=== PATIENT | male | born 1965 | race Caucasian/White ===

== ENCOUNTER 2018-07-02 15:53 | Emergency (ER) | payer BC ==
[~2018-07-02] VITALS: Ht 177.8 cm; Wt 88.5 kg
[2018-07-02 16:01] VITALS: BP 169/92
--- NOTE | 2018-07-02 16:24 | EKG ---
[facility] [address] [place] [address] Test Date: 2018-07-02 Test Time: 15:56:17 Pat Name: TETO VALENCIA Department: Room: Gender: M Customer Support Assistant: : 1965 Requested By: CATA NUNEZ Order Number: [id number] Reading MD: Tin Blanco Measurements Intervals [place] Rate: 64 P: 25 HI: 138 QRS: 24 QRSD: 78 T: 14 QT: 342 QTc: 356 Interpretive Statements SINUS RHYTHM ATRIAL PREMATURE COMPLEX(ES) Electronically Signed On 07-07-2018 11:50:05 CDT by Tin Blanco
[2018-07-02] MEDS ORDERED: ASPIRIN CHEWABLE 81 MG TABLET. PO ONE (16:30)
[2018-07-02 16:44] LABS: BASO % 0 % (0-3); EOS # 0.2 x10^3/uL (0.0-0.7); EOS % 3 % (0-3); HEMATOCRIT 52.1 % (39.0-53.0); HEMOGLOBIN 18.1 g/dL (13.0-17.5); LYMPH # 1.6 x10^3/uL (1.0-4.8); LYMPH % 22 % (24-48); MEAN CORPUSCULAR HEMOGLOBIN 32 pg (25-35); MEAN CORPUSCULAR HGB CONC 35 g/dL (31-37); MEAN CORPUSCULAR VOLUME 92 fL (79-100); MONO # 0.9 x10^3/uL (0.0-1.1); MONO % 12 % (0-9); NEUT # 4.4 x10^3uL (1.8-7.7); NEUT % 62 % (31-73); PLATELET COUNT 231 x10^3/uL (140-400); RED BLOOD COUNT 5.66 x10^6/uL (4.30-5.70); RED CELL DISTRIBUTION WIDTH 13.7 % (11.5-14.5); WHITE BLOOD COUNT 7.1 x10^3/uL (4.0-11.0)
[2018-07-02 16:56] LABS: PROTHROMBIN TIME PATIENT 12.1 SEC (11.7-14.0)
--- NOTE | 2018-07-02 17:01 | RAD ---
PORTABLE CHEST 1V Clinical Indication: ER PATIENT. CHEST TIGHTNESS X2 DAYS. ABNORMAL EKG. Comparison: None. Findings: The cardiomediastinal silhouette is normal. Lungs are clear. There is no pneumothorax. No pleural effusion is appreciated. No acute bone abnormality. IMPRESSION: No acute cardiopulmonary process. Electronically signed by: Apolinar Kaufman MD (07/02/2018 4:57 PM) [facility]
[2018-07-02 17:03] LABS: CALCIUM 9.6 mg/dL (8.5-10.1); CREATININE 1.1 mg/dL (0.7-1.3); GFR 70.6; POTASSIUM 4.6 mmol/L (3.5-5.1)
[2018-07-02 17:07] LABS: ALBUMIN 3.9 g/dL (3.4-5.0); ALBUMIN/GLOBULIN RATIO 0.9 (1.0-1.7); MAGNESIUM 2.2 mg/dL (1.8-2.4); TOTAL BILIRUBIN 0.8 mg/dL (0.2-1.0); TOTAL PROTEIN 8.1 g/dL (6.4-8.2)
[2018-07-02 17:09] LABS: D-DIMER 0.6 ug/mlFEU (0.00-0.50)
[2018-07-02] MEDS ORDERED: CONTRAST GIVEN. MC PRN (17:30)
[2018-07-02] MEDS ORDERED: IOHEXOL 300 MG/ML 100ML VIAL. IV ONE (17:30)
--- NOTE | 2018-07-02 17:39 | PHYS DOC ---
Past Medical History Past Medical History: No Pertinent History Past Surgical History: Other Additional Past Surgical Histo: "GROIN REPAIR" Alcohol Use: Heavy Additional Information: DAILY Drug Use: None Adult General Chief Complaint Chief Complaint: CHEST PAIN HPI HPI Patient is a 53 year old male who presents with chest pain palpitations and shortness of breath. This is a patient who has a history of tobacco use but he quit couple years back also father had an AR otherwise no prior significant history. He says for the last 3 or 4 days he's had tightness in his chest right side of the chest comes and goes it is better when he exerts himself and worse when he lays flat especially at night. He feels heart palpitations as well as last night he woke up he felt very short of breath he has been using his 's home oxygen saturation monitor regularly and he is noted saturations of 94-95 which have worried him greatly. Also has noted his heart rate anywhere from 40- 70 and he was worried about that he was having an EKG an outside clinic that showed PVCs with occasional bigeminy and so he was referred to the ER for evaluation. Review of Systems Review of Systems Constitutional: Denies fever or chills [] Eyes: Denies change in visual acuity, redness, or eye pain [] Cardiovascular: No additional information not addressed in HPI [] GI: Denies abdominal pain, nausea, vomiting, bloody stools or diarrhea [] : Denies dysuria or hematuria [] Musculoskeletal: Denies back pain or joint pain [] Integument: Denies rash or skin lesions [] All other systems were reviewed and found to be within normal limits, except as documented in this note. Current Medications Current Medications Current Medications Medications (Trade) Dose Ordered Sig/Fredy Start Time Stop Time Status Last Admin Dose Admin Aspirin (Children'S Aspirin) 324 mg 1X ONCE 07/02/18 16:30 07/02/18 16:31 DC 07/02/18 16:48 324 MG Info (CONTRAST GIVEN -- Rx MONITORING) 1 each PRN DAILY PRN 07/02/18 17:30 07/02/18 20:23 DC Iohexol (Omnipaque 300 Mg/ml) 75 ml 1X ONCE 07/02/18 17:30 07/02/18 17:31 DC 07/02/18 18:19 75 ML Allergies Allergies Allergies Coded Allergies Type Severity Reaction Last Updated Verified No Known Drug Allergies 07/02/18 No Physical Exam Physical Exam Constitutional: Well developed, well nourished, no acute distress, non-toxic appearance. [] HENT: Normocephalic, atraumatic, bilateral external ears normal, oropharynx moist, no oral exudates, nose normal. [] Eyes: PERRLA, EOMI, conjunctiva normal, no discharge. [] Neck: Normal range of motion, no tenderness, supple, no stridor. [] Cardiovascular:Heart rate regular rhythm, no murmur [] Lungs & Thorax: Bilateral breath sounds clear to auscultation [] Abdomen: Bowel sounds normal, soft, no tenderness, no masses, no pulsatile masses. [] Skin: Warm, dry, no erythema, no rash. [] Back: No tenderness, no CVA tenderness. [] Extremities: No tenderness, no cyanosis, no clubbing, ROM intact, no edema. [] Neurologic: Alert and oriented X 3, normal motor function, normal sensory function, no focal deficits noted. [] Psychologic: Affect normal, judgement normal, mood normal. [] Serrano: Constitutional: Well developed, well nourished, no acute distress, non-toxic appearance. [] Neck: Normal range of motion, no tenderness, supple, no stridor. [] Cardiovascular: Heart rate regular rhythm, no murmur [] Lungs & Thorax: Bilateral breath sounds clear to auscultation; no wheezes or rales Abdomen: Soft, no tenderness Skin: Warm, dry Back: No tenderness, no CVA tenderness. [] Extremities: No calf tenderness, no edema. [] Neurologic: Alert and oriented X 3, no focal deficits noted. [] Psychologic: Affect normal, judgement normal, mood normal. [] Current Patient Data Vital Signs Vital Signs Date Time Temp Pulse Resp B/P (MAP) Pulse Ox O2 Delivery O2 Flow Rate FiO2 07/02/18 16:01 97.6 78 18 169/92 (117) 100 Room Air 97.6 Lab Values Laboratory Tests Test 07/02/18 16:24 07/02/18 18:50 07/02/18 18:51 White Blood Count 7.1 x10^3/uL (4.0-11.0) Red Blood Count 5.66 x10^6/uL (4.30-5.70) Hemoglobin 18.1 g/dL (13.0-17.5) H Hematocrit 52.1 % (39.0-53.0) Mean Corpuscular Volume 92 fL (79-100) Mean Corpuscular Hemoglobin 32 pg (25-35) Mean Corpuscular Hemoglobin Concent 35 g/dL (31-37) Red Cell Distribution Width 13.7 % (11.5-14.5) Platelet Count 231 x10^3/uL (140-400) Neutrophils (%) (Auto) 62 % (31-73) Lymphocytes (%) (Auto) 22 % (24-48) L Monocytes (%) (Auto) 12 % (0-9) H Eosinophils (%) (Auto) 3 % (0-3) Basophils (%) (Auto) 0 % (0-3) Neutrophils # (Auto) 4.4 x10^3uL (1.8-7.7) Lymphocytes # (Auto) 1.6 x10^3/uL (1.0-4.8) Monocytes # (Auto) 0.9 x10^3/uL (0.0-1.1) Eosinophils # (Auto) 0.2 x10^3/uL (0.0-0.7) Basophils # (Auto) 0.0 x10^3/uL (0.0-0.2) Prothrombin Time 12.1 SEC (11.7-14.0) Prothrombin Time INR 0.9 (0.8-1.1) D-Dimer (Reshma) 0.60 ug/mlFEU (0.00-0.50) H Sodium Level 140 mmol/L (136-145) Potassium Level 4.6 mmol/L (3.5-5.1) Chloride Level 104 mmol/L (98-107) Carbon Dioxide Level 28 mmol/L (21-32) Anion Gap 8 (6-14) Blood Urea Nitrogen 14 mg/dL (8-26) Creatinine 1.1 mg/dL (0.7-1.3) Estimated GFR (Cockcroft-Gault) 70.6 BUN/Creatinine Ratio 13 (6-20) Glucose Level 91 mg/dL (70-99) Calcium Level 9.6 mg/dL (8.5-10.1) Magnesium Level 2.2 mg/dL (1.8-2.4) Total Bilirubin 0.8 mg/dL (0.2-1.0) Aspartate Amino Transferase (AST) 33 U/L (15-37) Alanine Aminotransferase (ALT) 53 U/L (16-63) Alkaline Phosphatase 74 U/L (46-116) Troponin I Quantitative < 0.017 ng/mL (0.000-0.055) < 0.017 ng/mL (0.000-0.055) Total Protein 8.1 g/dL (6.4-8.2) Albumin 3.9 g/dL (3.4-5.0) Albumin/Globulin Ratio 0.9 (1.0-1.7) L Lipase 147 U/L (73-393) POC Troponin I 0.00 ng/ml (<0.08) Laboratory Tests 07/02/18 16:24 Laboratory Tests 07/02/18 16:24 EKG EKG [] Interpretation Time: EKG shows normal sinus rhythm rate of 64 occasional premature atrial contraction but no signs of ischemia were identified. This was interpreted by me the time of encounter Radiology/Procedures Radiology/Procedures []Reveal cardiac monitoring the emergency room shows mostly sinus rhythm with occasional PVCs. Impressions: Chest x-ray was negative acute PROCEDURE: CT ANGIOGRAPHY CHEST Exam performed: CT pulmonary angiogram of the chest with contrast. Date: 07/02/2018. Comparison: One view chest from earlier today Indication: Chest pain and elevated d-dimer Technique: Contiguous helical acquisitions are obtained through the chest during intravenous administration of [ 75 ] cc of [ Omnipaque 300 ] . [Sagittal and coronal MIP images were obtained and reviewed Findings: The structures at the thoracic inlet including both lobes of the thyroid gland appear normal. Pulmonary arterial opacification is adequate to evaluate for pulmonary embolus. There is no evidence for pulmonary embolism. The heart is normal in size. No pericardial effusion is seen. No mediastinal or hilar lymphadenopathy is seen. No infiltrates or pleural effusions are seen. No pulmonary nodules are detected. Upper abdominal structures appear unremarkable. Osseous structures appear intact. Impression: 1. Study is negative for pulmonary embolism. 2. No additional pulmonary abnormality seen. PQRS Compliance Statement: One or more of the following individualized dose reduction techniques were utilized for this examination: 1. Automated exposure control 2. Adjustment of the mA and/or kV according to patient size 3. Use of iterative reconstruction technique Electronically signed by: Cristina Christopher MD (07/02/2018 6:43 PM) [facility] Course & Med Decision Making Course & Med Decision Making Pertinent Labs and Imaging studies reviewed. (See chart for details) []53-year-old male presenting with a sensation of palpitations associated with some anxiety which he admits to as well as some atypical chest pain and shortness of breath. Troponin negative EKG shows no ischemia his heart score is a 3 d-dimer was borderline elevated CT scan PE protocol is pending. I suspect overall symptomatic PVCs possibly related to frequent alcohol use I advised him to decrease this and follow-up with primary care doctor for consideration of Holter monitor and echo. Signed over to Josr to follow up CT PE protocol. Josr- Sign out received from Dr. Taveras for patient with atypical chest pain. Labs reviewed. Troponin x 1 negative. CTA pending at time of sign out. CTA negative for acute process. Repeat troponin also within normal limits. Patient seen and evaluated by myself. Low cardiac risk factors. Patient stable for discharge with outpatient follow-up with PCP/cardiology. Discussed findings and plan with patient and family, who acknowledge understanding and agreement. Discharge paperwork previously printed by Dr. Taveras. Dragon Disclaimer Dragon Disclaimer This electronic medical record was generated, in whole or in part, using a voice recognition dictation system. Departure Departure Impression: Primary Impression: Chest pain Additional Impression: Elevated blood pressure reading Disposition: HOME, SELF-CARE Condition: STABLE Patient Instructions: Chest Pain (Nonspecific), [id number] Additional Instructions: FOLLOW UP IN TWO WEEKS FOR BLOOD PRESSURE. Problem Qualifiers Primary Impression: Chest pain Chest pain type: unspecified Qualified Codes: R07.9 - Chest pain, unspecified CATA TAVERAS MD Jul 02, 2018 17:39 LEIGHTON SERRANO DO Jul 02, 2018 19:14
--- NOTE | 2018-07-02 18:47 | RAD ---
Exam performed: CT pulmonary angiogram of the chest with contrast. Date: 07/02/2018. Comparison: One view chest from earlier today Indication: Chest pain and elevated d-dimer Technique: Contiguous helical acquisitions are obtained through the chest during intravenous administration of [ 75 ] cc of [ Omnipaque 300 ] . [Sagittal and coronal MIP images were obtained and reviewed Findings: The structures at the thoracic inlet including both lobes of the thyroid gland appear normal. Pulmonary arterial opacification is adequate to evaluate for pulmonary embolus. There is no evidence for pulmonary embolism. The heart is normal in size. No pericardial effusion is seen. No mediastinal or hilar lymphadenopathy is seen. No infiltrates or pleural effusions are seen. No pulmonary nodules are detected. Upper abdominal structures appear unremarkable. Osseous structures appear intact. Impression: 1. Study is negative for pulmonary embolism. 2. No additional pulmonary abnormality seen. PQRS Compliance Statement: One or more of the following individualized dose reduction techniques were utilized for this examination: 1. Automated exposure control 2. Adjustment of the mA and/or kV according to patient size 3. Use of iterative reconstruction technique Electronically signed by: Cristina Christopher MD (07/02/2018 6:43 PM) [facility]
== END 2018-07-02 20:20 | disposition home or self-care (01) ==
LOC: ER 15:53
DX: R07.89 Other chest pain (principal); R03.0 Elevated blood-pressure reading, without diagnosis of hypertension; R06.02 Shortness of breath; F10.20 Alcohol dependence, uncomplicated; Y90.9 Presence of alcohol in blood, level not specified; Z87.891 Personal history of nicotine dependence
CPT/HCPCS: 36415; 71045; 71275; 80053; 83690; 83735; 84484; 85025; 85379; 85610; 93005; 99285; Q9967